=== PATIENT | male | born 1950 | race Two or more races ===

== ENCOUNTER 2021-09-21 08:20 | Emergency (ER) | payer MEDICAID, MEDICARE ==
[~2021-09-21] VITALS: Ht 170.2 cm; Wt 81.6 kg
[~2021-09-21 08:20] MED LIST: ATEN100T PO; HYDR-2595 PO; SIMV-13 PO
[2021-09-21] MEDS ORDERED: SODIUM BICARBONATE 8.4% INJ 50ML SYRINGE IV ONE (08:21)
[2021-09-21] MEDS ORDERED: EPINEPHrine HCL 1 MG/10 ML SYRG IV ONE (08:21)
[2021-09-21 08:30] VITALS: BP 0/0
== END 2021-09-21 15:00 ==
LOC: ER 08:20 → EDBD 08:20 → ER 15:00
DX: I46.9 Cardiac arrest, cause unspecified (principal); I11.0 Hypertensive heart disease with heart failure; I50.9 Heart failure, unspecified; E78.5 Hyperlipidemia, unspecified; K74.60 Unspecified cirrhosis of liver; Z88.6 Allergy status to analgesic agent
CPT/HCPCS: 92950; 99285; J0171